=== PATIENT | male | born 1980 | race Caucasian/White ===

== ENCOUNTER → 2018-01-21 | Day surgery (SDC) | payer OTHER ==
[~2018-01-21] VITALS: Ht 185.4 cm; Wt 113.4 kg
[~2018-01-21] MED LIST: PERCOCET 5-3251 EACH PO
--- NOTE | 2018-01-21 14:43 | Operative Report ---
Operative/Inv Procedure Report Surgery Date: 01/21/18 Name of Procedure: Incarcerated umbilical hernia repair Pre-Operative Diagnosis: Incarcerated umbilical hernia Post-Operative Diagnosis: Same Estimated Blood Loss: scant Surgeon/Inside Channel Account Manager: Bob Bearden MD Anesthesia: local monitored anesthesi Implants: None Operative/Procedure Note Note: After informed consent patient brought to the operating room and laid supine. Gen. anesthesia obtained and the abdomen was prepped and draped. The periumbilical tissues were infiltrated with a cocktail local anesthesia. A curvilinear incision was made sharply. We dissected down to the umbilical stalk and circumferentially dissected it bluntly. The stock was then transected with cautery, thus exposing the defect. The hernia sac was circumferentially dissected down to level of fascia and incised the neck with cautery. Contents were then reduced. The defect measured less than 2 cm and I elected to close it primarily. This was accomplished with 3, 0 Maxon sutures. The umbilical stalk re-created with 3-0 Vicryl. Incision was then closed in layers of Vicryl. Sterile dressings were applied. Sponge and needle counts are correct CC: Briana CARRENO,Kavita
== END ==
LOC: STS 00:39
DX: K42.0 Umbilical hernia with obstruction, without gangrene (principal)
CPT/HCPCS: J0690; J2001; J2250; J3490